=== PATIENT | female | born 1945 | race Caucasian/White ===

== ENCOUNTER 2023-08-29 10:00 | Outpatient (RCR) | payer MEDICARE, BC, SELFPAY ==
--- NOTE | 2023-08-08 14:21 | PT.OPEX ---
PT [place] [facility] Eval PT [facility] Outpatient Eval Start: 07/24/23 16:30 Freq: Status: Active Protocol: Document 08/08/23 11:50 MLS (Rec: 08/08/23 14:17 MLS [id number]) E-signed By An Jensen DPT Physical Therapy Outpatient Evaluation Insurance Information Recert Due Date 11/05/23 Insurance Name Medicare B,Blue Cross/Blue [employer] Medical Diagnosis R29.898 bilateral leg weakness M47.816 lumbar spondylosis Treating Diagnosis M54.50 Low back pain R29.898 bilateral leg weakness Referring MD Marc Neri MD Subjective Subjective Patient is a 78 year old female who presents to physical therapy with signs and symptoms consistent with low back and leg pain. she reports that she fell 4 times last winter. She states that she broke 2 hip bones and both shoulders. She states that she has been having low back pain since then on and off. She ambulates with a 4 prong cane. She states that she doesn't sleep well but she does take sleeping pills. She states that she takes the pills as needed. She states that she is doing a few exercises for her arms and legs at home. Aggravating factors include lifting. Alleviating factors include nothing. She states that she does have pain across her low back, worse on the right side. She reports pain in both feet and lower extremities. The pain is in her feet and up to mid calf. No complaints of numbness or tingling. Significant past medical history includes arthritis, respiratory problems, previous broken hips and shoulder from fall. She reports that her last fall was in Aug/Sep. Patient would like to have less pain in her back and legs from physical therapy sessions. 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[place] [employer] Objective Other/Pertinent Objective Posture Assessment: Ambulates with 4 prong cane Decreased lordosis LUMBAR ROM Flexion: 75% Extension: 75% Right Sidebend: 75% Left Sidebend: 75% Right Rotation: 75% Left Rotation: 75% LE MMT Hip flexion: R 3/5 L 3/5 Hip Extension: R 3/5 L 3/5 Hip abduction: R 3/5 L 3/5 Knee extension: R 3/5 L 3/5 Knee Flexion: R 3/5 L 3/5 JOINT MOBILITY/PALPATION Severe tenderness and tightness with palpation of bilateral QL and ES in prone position SPECIAL TESTS -Quadrant test: negative -Single leg stance: unable to perform due to balance -Slump test: negative -Straight leg raise: negative SI/HIP -NATALIE: negative -FADIR: negative TX: Access Code: [email or web address] URL: [email or web address] Date: 08/08/2023 Prepared by: An Jensen Exercises - Supine Bridge - 1 x daily - 7 x weekly - 3 sets - 10 reps - Active Straight Leg Raise with Quad Set - 1 x daily - 7 x weekly - 3 sets - 10 reps - Supine Heel Slide - 1 x daily - 7 x weekly - 3 sets - 10 reps - Supine Gluteal Sets - 1 x daily - 7 x weekly - 3 sets - 10 reps - Supine Quadricep Sets - 1 x daily - 7 x weekly - 3 sets - 10 reps Functional Test Performed & Score 36/50 Modified Oswestry Low Back Pain Questionnaire 56/80 LEFS Assessment Assessment/Impression Pt is a 78 year old female who presents with concerns of lumbar spondylosis and bilateral lower extremity weakness. Patient also has notable objective findings including limited ROM, tenderness to palpation, and decreased strength which are also likely contributing to the problem. Patient is a good candidate for skilled therapy to target deficits described above. Skilled PT intervention is necessary for use of therapeutic exercise manual therapy, neuromuscular re- education, gait training, and therapeutic activity. Functional impairments include difficulty with standing, walking, sleeping, exercising and ADLs. See appropriate sections of PT eval for complete list of goals and POC . D/C plan and criteria is for pt to achieve the goals as listed below or until max rehab potential is met. Pt was agreeable with plan of care and goals established. Primary Functional Limitations standing walking exercising ADLs sleeping Plan of Care Rehabilitation Potential Good Physical Therapy Goals ST.Pt will demonstrate independence in performance of home exercise program with the use of video and/or handouts in order to optimize functional mobility and reduce risk for re-injury. 2.Pt will demonstrate consistent HEP compliance to ensure progress in reaching established goals during course of care. 3.Patient will be able to sit for up to one hour without pain. 4.Patient will report pain levels <2/10 with all activities in order to improve functional mobility at home, work and during functional leisure activities. LT.Patient is able to sleep without waking more than one time due to pain in a 6-8 hour time frame. 6.Patient will be able to walk up to one mile without pain. 7.Patient will be able to bend and lift household items from the floor to shoulder height to perform ADLs without pain. 8.Pt will be able to ascend/ descend 1 flight of stairs in order to perform ADLs pain free. 9.Pt will exhibit 5 pt improvement in Modified Oswestry and LEFS Outcome measures to demonstrate functional improvement and progress towards goals Coordination/Communication With Referral Source Treatment Plan/Direct Interventions Gait Training,Manual Therapy, Neuromuscular Re-ed, Therapeutic Activities, Therapeutic Exercises Patient Will Be Discharged From Therapy Independently Progressing Evaluation Billing Untimed Code Treatment Minutes 30 Complexity Low Certification Information Physician Comment/Change : Physician NPI Number #
== END 2023-11-21 09:17 | disposition home or self-care (01) ==
PROVIDERS: PCP Surgery; Visit Provider Family Medicine
DX: M47.816 Spondylosis without myelopathy or radiculopathy, lumbar region (principal); R29.898 Other symptoms and signs involving the musculoskeletal system; M54.50 Low back pain, unspecified; Z51.89 Encounter for other specified aftercare
CPT/HCPCS: 97110; 97140; 97161

== ENCOUNTER 2025-04-30 10:15 | Outpatient (CLI) | payer MEDICARE, BC, SELFPAY | END 2025-04-30 10:16 | disposition home or self-care (01) | PROVIDERS: PCP Internal Medicine; Visit Provider Internal Medicine | DX: E11.9 Type 2 diabetes mellitus without complications (principal) | CPT/HCPCS: 80053; 80061 ==

== ENCOUNTER 2025-08-06 09:19 | Observation (INO) | payer MEDICARE, BC, SELFPAY ==
[2025-08-06] VITALS (28 sets, daily range): BP systolic 136–151; BP diastolic 51–68; PULSE 61–78; RESP 12–18; TEMP 36.2–36.7; O2SAT 87–100; BMI 34.3
--- NOTE | 2025-08-06 10:09 | ED.GENADULT ---
HPI - General Adult General Chief complaint: Back Injury/Pain Stated complaint: Back pain Time Seen by Provider: 08/06/25 10:09 History of Present Illness HPI narrative: Patient here with increased back pain starting this morning at 3:30 am when going to the bathroom . She was here previously on last week with negative XRays. Was doing fairly well up until this morning. Taking Tylenol at home for the pain. Given 100 mcg fent in the ambulance. 80-year-old woman presenting to the emergency department with complaint of severe back pain. Lives with son. Has been attending to her and this morning when went to mobilize, use the bathroom, marked increase in pain. Arrive via EMS. Has received some fentanyl. Looks like had a fall on 07/22 described as a mechanical fall. And then with increasing left hip pain was seen in clinic on 07/31. Imaging at that time was negative for acute abnormality with imaging focused on the right hip. Underlying history of rheumatoid arthritis and osteoporosis and diabetes. Was given a small quantity of [place] and have been restricting [place] to 1 tablet before bed as they do not have much supply. Apparently history of some degree of IBS propensity to diarrhea. Granddaughter here is an PROGRAMMING EQUIPMENT OPERATOR and manages/organized her medications. They have recently weaned off of tramadol. History of dementia and COPD Son has some of his own physical difficulties and is having trouble managing Anju in her current state. Anju has moved from cane to walker and is now worse. Related Data Home Medications ?Medication ?Instructions ?Recorded ?Confirmed Prevagen PO 04/30/25 07/31/25 amlodipine 5 mg tablet 5 mg PO QDAY 04/30/25 07/31/25 citalopram 20 mg tablet 20 mg PO QDAY 04/30/25 07/31/25 donepezil 10 mg tablet 10 mg PO QDAY 04/30/25 07/31/25 ferrous sulfate 325 mg (65 mg 325 mg PO QDAY 04/30/25 07/31/25 iron) tablet glipizide 2.5 mg tablet, extended 2.5 mg PO QDAY 04/30/25 07/31/25 release 24 hr hydroxyzine HCl 25 mg tablet 25 mg PO QHS 04/30/25 07/31/25 levothyroxine 137 mcg capsule 137 mcg PO QDAY 04/30/25 07/31/25 [id number] 250 mg-dha 90 mg-epa 160 cap PO BID 04/30/25 07/31/25 mg-fish-lut 10 mg-zeax 2 mg capsule (Ocuvite [employer]) prednisone 5 mg tablet 5 mg PO QDAY 04/30/25 07/31/25 trazodone 50 mg tablet 25 mg PO QHS PRN 04/30/25 07/31/25 Previous Rx's ?Medication ?Instructions ?Recorded acetaminophen 325 mg capsule 650 mg (2 x 325 mg) PO ONCE PRN 07/31/25 pain #30 caps hydrocodone 5 mg-acetaminophen 325 1 tab PO Q8H PRN pain #10 tabs 07/31/25 mg tablet Allergies Allergy/AdvReac Type Severity Reaction Status Date / Time indomethacin AdvReac Unknown Nausea Verified 07/31/25 13:18 Review of Systems Status of ROS: Reports: 6 or more systems reviewed and unremarkable except as noted in History and below [facility] Medical History COPD (chronic obstructive pulmonary disease) ?J44.9 - Chronic obstructive pulmonary disease, unspecified (ICD-10) GERD (gastroesophageal reflux disease) ?K21.9 - Gastro-esophageal reflux disease without esophagitis (ICD-10) Peripheral neuropathy ?G62.9 - Polyneuropathy, unspecified (ICD-10) Migraine ?G43.909 - Migraine, unspecified, not intractable, without status migrainosus (ICD-10) Intermittent diarrhea ?R19.7 - Diarrhea, unspecified (ICD-10) Dementia ?F03.90 - Unspecified dementia, unspecified severity, without behavioral disturbance, psychotic disturbance, mood disturbance, and anxiety (ICD-10) Insomnia ?G47.00 - Insomnia, unspecified (ICD-10) Anxiety ?F41.9 - Anxiety disorder, unspecified (ICD-10) Depression ?F32.A - Depression, unspecified (ICD-10) Osteoporosis ?M81.0 - Age-related osteoporosis without current pathological fracture (ICD-10) Type 2 diabetes mellitus ?E11.9 - Type 2 diabetes mellitus without complications (ICD-10) Hypothyroidism ?E03.9 - Hypothyroidism, unspecified (ICD-10) Hyperlipidemia ?E78.5 - Hyperlipidemia, unspecified (ICD-10) Hypertension ?I10 - Essential (primary) hypertension (ICD-10) Rheumatoid arthritis ?M06.9 - Rheumatoid arthritis, unspecified (ICD-10) Social History What is your current living situation?: I presently have a place to live Problems where you live: no known problems In the past 12 months, utilities in danger of being shut off: no In past 12 months, lack of transportation kept you from medical appts, meetings, work, or getting things needed for daily living: no In the past 12 mos, have been you worried that your food would run out before you had money to buy more?: never true In the past 12 mos, the food you bought just didn't last and you didn't have money to buy more?: declined to answer How often does anyone, including family, friends and others, physically hurt you: decline to answer How often does anyone, including family, friends and others, insult or talk down to you: decline to answer How often does anyone, including family, friends and others, threaten you with harm: decline to answer How often does anyone, including family, friends and others, scream or curse at you: decline to answer Exam Narrative: Exam Narrative: Still complaining of pain with emesis bag at hand although denying nausea. A little hard of hearing. Examination shows at rest is relatively comfortable but any movement elicits marked increase in pain. Sore to palpation over the left greater trochanter and IT band. Also with pain in the left SI joint greater than right. Pain to palpation through the low back as well. No abdominal pain. She is breathing easily but was placed on nasal cannula 2 L with some lower oxygen saturations; this was after receiving fentanyl. Is able to raise both legs from her bed without significant difficulty although the left leg with noticeably discomfort. Const: Vital Signs, click to edit/add: Vital Signs - 24 hr 08/06/25 09:24 08/06/25 09:25 08/06/25 09:26 Temperature 97.1 F L Pulse Rate 68 69 Pulse Rate [Pulse Oximeter] 71 Respiratory Rate 18 Blood Pressure 144/68 H Blood Pressure [Ri ght Upper Arm] 144/68 H Pulse Oximetry 88 89 88 Oxygen Delivery Me thod Room Air Oxygen Flow Rate 08/06/25 09:30 08/06/25 09:33 08/06/25 09:45 Temperature Pulse Rate 72 64 Pulse Rate [Pulse Oximeter] Respiratory Rate Blood Pressure Blood Pressure [Ri ght Upper Arm] Pulse Oximetry 96 99 Oxygen Delivery Me thod Nasal Cannula Oxygen Flow Rate 2 08/06/25 10:00 08/06/25 10:14 08/06/25 10:15 Temperature Pulse Rate 67 71 66 Pulse Rate [Pulse Oximeter] Respiratory Rate 16 Blood Pressure 151/65 H Blood Pressure [Ri ght Upper Arm] Pulse Oximetry 98 96 94 Oxygen Delivery Me thod Room Air Oxygen Flow Rate 08/06/25 10:30 08/06/25 11:09 08/06/25 11:10 Temperature Pulse Rate 75 63 65 Pulse Rate [Pulse Oximeter] Respiratory Rate 16 12 Blood Pressure 150/60 H Blood Pressure [Ri ght Upper Arm] Pulse Oximetry 92 88 97 Oxygen Delivery Me thod Room Air Nasal Cannula Oxygen Flow Rate 2 08/06/25 11:15 08/06/25 11:30 08/06/25 11:45 Temperature Pulse Rate 62 61 62 Pulse Rate [Pulse Oximeter] Respiratory Rate Blood Pressure Blood Pressure [Ri ght Upper Arm] Pulse Oximetry 99 100 100 Oxygen Delivery Me thod Oxygen Flow Rate 08/06/25 12:00 08/06/25 12:02 08/06/25 12:15 Temperature Pulse Rate 62 61 67 Pulse Rate [Pulse Oximeter] Respiratory Rate 16 Blood Pressure 136/61 Blood Pressure [Ri ght Upper Arm] Pulse Oximetry 100 99 99 Oxygen Delivery Me thod Nasal Cannula Oxygen Flow Rate 2 08/06/25 12:30 08/06/25 12:45 08/06/25 13:00 Temperature Pulse Rate 65 68 64 Pulse Rate [Pulse Oximeter] Respiratory Rate Blood Pressure Blood Pressure [Ri ght Upper Arm] Pulse Oximetry 98 89 88 Oxygen Delivery Me thod Oxygen Flow Rate 08/06/25 13:01 08/06/25 13:30 08/06/25 13:45 Temperature Pulse Rate 67 77 70 Pulse Rate [Pulse Oximeter] Respiratory Rate 16 Blood Pressure 142/58 H Blood Pressure [Ri ght Upper Arm] Pulse Oximetry 88 87 L 88 Oxygen Delivery Me thod Room Air Oxygen Flow Rate Documenting provider has reviewed patient's vital signs: yes Course Vital Signs Vital signs: Initial Vital Signs Pulse Rate 68 08/06/25 09:24 Blood Pressure 144/68 H 08/06/25 09:24 Blood Pressure Mean 93 08/06/25 09:24 Pulse Oximetry 88 08/06/25 09:24 Vital Signs Pulse Rate 68 08/06/25 09:24 Blood Pressure 144/68 H 08/06/25 09:24 Pulse Oximetry 88 08/06/25 09:24 Temperature 97.1 F L 08/06/25 09:26 Pulse Rate 70 08/06/25 13:45 Respiratory Rate 16 08/06/25 13:01 Blood Pressure 142/58 H 08/06/25 13:01 Pulse Oximetry 88 08/06/25 13:45 Oxygen Delivery Method Room Air 08/06/25 13:01 Oxygen Flow Rate 2 08/06/25 12:02 Medications Administered Medications: Discontinued Medications Generic Name Dose Route Start Last Admin Trade Name Freq PRN Reason Stop Dose Admin Hydrocodone Bitart/Acetaminophen 2 tab 08/06/25 13:21 08/06/25 13:29 Hydrocodone-Acetamin 5-325 Mg 1 Tab PO 08/06/25 13:22 2 tab ONCE ONE Administration Morphine Sulfate 4 mg 08/06/25 10:29 08/06/25 10:51 Morphine 4 Mg/Ml Inj IVP 08/06/25 10:30 4 mg ONCE ONE Administration Medical Decision Making MDM Narrative Medical decision making narrative: I did request some morphine ahead of further imaging. With degree of pain complaint I think it would be prudent to CT lumbar spine and pelvis. Might have a compression fracture. Appears to be experiencing some decompensation in the IT band and then throughout the left-sided hip frankly. Has been comfortable at rest during time in the ER. By my independent review CT imaging does show compression fracture at L2. INDICATION: Severe low back pain. TECHNIQUE: CT lumbar spine without contrast. COMPARISON: None. FINDINGS: Age indeterminate compression deformity/fracture of the superior endplate of the L2 vertebral body with mild retropulsion without severe spinal canal stenosis. Multilevel degenerative changes of the lumbar spine including intervertebral disc space height narrowing and facet arthropathy. Mild intervertebral body height loss of the L5 vertebral body. Mild anterolisthesis L4 on L5. Aortic iliac atherosclerotic calcifications. IMPRESSION: Age-indeterminate compression deformity/fracture of the L2 vertebral body. Recommend correlation with point tenderness and consider MRI for definitive evaluation. Please note that all CT scans at this facility use dose modulation, iterative reconstruction, and/or weight-based dosing when appropriate to reduce radiation dose to as low as reasonably achievable. Dictated by Villa Wesley MD @ 08/06/2025 11:37:38 AM EXAM: CT OF THE PELVIS, WITHOUT CONTRAST CLINICAL INDICATION: Left hip pain following fall 3 weeks prior. COMPARISON STUDIES: 07/31/2025 radiographs. TECHNICAL: Non-contrast CT of the pelvis with axial images. Sagittal oblique and coronal oblique reformatted images were created of the left hip. FINDINGS: OSSEOUS STRUCTURES: No fracture, callous formation or periosteal reaction. No worrisome osseous lesion. Benign bone island in the right femoral head. No evidence for chronic avascular necrosis. JOINT SPACES: Right Hip: No effusion. Mild hypertrophic changes. Left Hip: No effusion. Mild hypertrophic changes. SI Joints: Moderate to advanced degenerative changes. No ankylosis. MUSCLES AND TENDONS: No intramuscular mass or hematoma. No muscle atrophy. No retracted tendon tear. SOFT TISSUES: No subcutaneous edema, fluid collection or hematoma. INTRAPELVIC CONTENTS: No free fluid or hematoma. No inguinal hernia. Hysterectomy. IMPRESSION: 1. No acute findings. 2. Mild degenerative changes in the hips. 3. Moderate to advanced degenerative changes in the SI joints. 4. Hysterectomy. Please note that all CT scans at this facility use dose modulation, iterative reconstruction, and/or weight-based dosing when appropriate to reduce radiation dose to as low as reasonably achievable. Dictated by Calvin Alvarez MD @ 08/06/2025 11:12:20 AM I did go to speak with primary care provider Dr. Romero Has made an appointment for this coming Sunday at 9:00 a.m. Discussion also for pain management needs and possible addition of calcitonin nasal spray. Attempted to mobilize and not able to bear weight more than 1 step. Subsequently given 2 tablets of [place]. Upon reassessment still unable mobilize adequately have requested for admission. Also uncertain tolerance of opiates along with history of COPD. Tends toward some mild hypoxia Medical Records Medical records reviewed: Yes I reviewed the patient's medical records Discharge Plan Discharge Clinical Impression: Compression fracture of lumbar vertebra, Pain Patient Disposition: Admitted As Observation Condition: Stable
--- NOTE | 2025-08-06 10:29 | CRLHL7_ITS ---
For Patients: As a result of the Century Cures Act, medical imaging exams and procedure reports are released immediately into your electronic medical record. You may view this report before your referring provider. If you have questions, please contact your health care provider. EXAM: CT OF THE PELVIS, WITHOUT CONTRAST CLINICAL INDICATION: Left hip pain following fall 3 weeks prior. COMPARISON STUDIES: 07/31/2025 radiographs. TECHNICAL: Non-contrast CT of the pelvis with axial images. Sagittal oblique and coronal oblique reformatted images were created of the left hip. FINDINGS: OSSEOUS STRUCTURES: No fracture, callous formation or periosteal reaction. No worrisome osseous lesion. Benign bone island in the right femoral head. No evidence for chronic avascular necrosis. JOINT SPACES: Right Hip: No effusion. Mild hypertrophic changes. Left Hip: No effusion. Mild hypertrophic changes. SI Joints: Moderate to advanced degenerative changes. No ankylosis. MUSCLES AND TENDONS: No intramuscular mass or hematoma. No muscle atrophy. No retracted tendon tear. SOFT TISSUES: No subcutaneous edema, fluid collection or hematoma. INTRAPELVIC CONTENTS: No free fluid or hematoma. No inguinal hernia. Hysterectomy. IMPRESSION: 1. No acute findings. 2. Mild degenerative changes in the hips. 3. Moderate to advanced degenerative changes in the SI joints. 4. Hysterectomy. Please note that all CT scans at this facility use dose modulation, iterative reconstruction, and/or weight-based dosing when appropriate to reduce radiation dose to as low as reasonably achievable. Dictated by Calvin Alvarez MD @ 08/06/2025 11:12:20 AM (Electronically Signed)
--- NOTE | 2025-08-06 10:29 | CRLHL7_ITS ---
For Patients: As a result of the Century Cures Act, medical imaging exams and procedure reports are released immediately into your electronic medical record. You may view this report before your referring provider. If you have questions, please contact your health care provider. INDICATION: Severe low back pain. TECHNIQUE: CT lumbar spine without contrast. COMPARISON: None. FINDINGS: Age indeterminate compression deformity/fracture of the superior endplate of the L2 vertebral body with mild retropulsion without severe spinal canal stenosis. Multilevel degenerative changes of the lumbar spine including intervertebral disc space height narrowing and facet arthropathy. Mild intervertebral body height loss of the L5 vertebral body. Mild anterolisthesis L4 on L5. Aortic iliac atherosclerotic calcifications. IMPRESSION: Age-indeterminate compression deformity/fracture of the L2 vertebral body. Recommend correlation with point tenderness and consider MRI for definitive evaluation. Please note that all CT scans at this facility use dose modulation, iterative reconstruction, and/or weight-based dosing when appropriate to reduce radiation dose to as low as reasonably achievable. Dictated by Villa Wesley MD @ 08/06/2025 11:37:38 AM (Electronically Signed)
[2025-08-06] MEDS: MORPHINE 4 MG/ML INJ IVP (10:51)
[2025-08-06] MEDS: HYDROCODONE-ACETAMIN 5-325 MG 1 TAB 2 TAB PO (13:29)
--- NOTE | 2025-08-06 16:32 | PM.IMHP1 ---
Assessment and Plan Assessment and plan (1) Compression fracture of lumbar vertebra: Problem comment: -L2 - age indeterminate. MR could be done to better visualize. This injury fits her history. -scheduled ER acetaminophen. Scheduled Calcitonin. P.r.n. Oxy, limited -inpatient OT and PT evaluations -would be helpful to have more help and DME at her home. -tcu TBD Status: Acute (2) Dementia: Problem comment: -unsure if there has been a baseline [place]. I would suggest this. also seems to get confused about medications and history. At a minimum a family discussion about safety and future arrangements should be initiated. Status: Chronic (3) COPD (chronic obstructive pulmonary disease): Problem comment: Chronic hypoxic respiratory failure. Nothing in exacerbation apparently tonight. Consider outpatient pulmonary evaluation. O2 sat goals 88-92% Current everyday smoker. Status: Chronic (4) Rheumatoid arthritis: Problem comment: Seronegative RA. See scanned [facility] note. Status: Chronic (5) On prednisone therapy: Problem comment: for RA Status: Acute (6) Type 2 diabetes mellitus: Problem comment: single agent glyburide. recent A1c is 6.4. Status: Chronic Hospitalist- H&P: HPI History of Present Illness Date Seen: 08/06/25 Chief complaint: Back pain Narrative: ADMISSION HISTORY AND PHYSICAL - HOSPITALIST Chief Complaint: Back pain, could not ambulate HPI: 80-year-old white female with history of dementia, osteoporosis, RA dendent on prednisone, diabetic who presents with her Steve to our ER. Steve had to call EMS early this morning as he could not help her to the bathroom. Apparently she fell on the 22 of July sustaining a back injury. She was not seen or evaluated at that time. She did come to urgent care about 07/31 for a hip xray(neg for acute fracture). She did say she was taking quite a bit of Tylenol at that time. She has since been using a walker the last couple of weeks. She seemed to be slowly improving. And this morning she just had a lot of trouble helping Steve help her stand up. No new falls. Previous to the fall she used a cane but rarely a walker. ER COURSE: Series of CT scans of her lumbar and pelvis. Analgesics. CODE STATUS: FULL CODE PCP: Dr. Romero EMERGENCY CONTACT PLAN: Steve I've updated the PFSH, medications and allergies in the Expanse tabs. INVESTIGATIONS: LABS/MICRO/ECG/IMAGING Blood pressure stable - 140s 50s Pulse rate 60s. Respiratory rate 16. Pulse ox 88-90% on half a L. No labs Pelvic CT is unremarkable. Known moderate to advanced degenerative changes in the SI joints Lumbar CT Age-indeterminate compression deformity/fracture of the L2 vertebral body. Recommend correlation with point tenderness and consider MRI for definitive evaluation. REVIEW OF SYSTEMS: 12-point ROS completed with patient and negative unless otherwise stated in HPI or below. PHYSICAL EXAM: CONSTITUTIONAL: seems to be alert and participates in her exam. GENERAL: Well nourished. No respiratory distress. Speaks in full sentences. VITAL SIGNS: see record. HEENT: Sclerae are anicteric. No petechiae. CARDIAC: rhythm is regular. There is no S3 or rub. No harsh murmurs. Extremities show trace edema with symmetrical pulses. Back: tender along the lumbar spine, can straight leg raise minimally. NEURO: Speech is fluent. A brief neurologic exam is negative. SKIN: No rashes, petechiae, concerning changes PSYCHIATRIC: Euthymic. ADMIT TO MEDSURG: FLOOR CARE DVT: Lovenox GI: PO intake Time spent: Today I spent 75 minutes seeing the patient, discussing the patient with ER staff, reviewing Expanse and EPIC notes/diagnostics, discussing the care plan with our care time that includes social work, PT/OT, pharmacy, RT, penitentiary and documenting my impressions and plan in the medical record. Medical Decision Making Medical Decision Making Has patient completed a Health Care Directive: No PFSH [facility] Medical History (Updated 08/06/25 @ 17:57 by Tawana Yip MD) Hip pain ?M25.559 - Pain in unspecified hip (ICD-10) Pain ?R52 - Pain, unspecified (ICD-10) COPD (chronic obstructive pulmonary disease) ?J44.9 - Chronic obstructive pulmonary disease, unspecified (ICD-10) GERD (gastroesophageal reflux disease) ?K21.9 - Gastro-esophageal reflux disease without esophagitis (ICD-10) Peripheral neuropathy ?G62.9 - Polyneuropathy, unspecified (ICD-10) Migraine ?G43.909 - Migraine, unspecified, not intractable, without status migrainosus (ICD-10) Intermittent diarrhea ?R19.7 - Diarrhea, unspecified (ICD-10) Dementia ?F03.90 - Unspecified dementia, unspecified severity, without behavioral disturbance, psychotic disturbance, mood disturbance, and anxiety (ICD-10) Insomnia ?G47.00 - Insomnia, unspecified (ICD-10) Anxiety ?F41.9 - Anxiety disorder, unspecified (ICD-10) Depression ?F32.A - Depression, unspecified (ICD-10) Osteoporosis ?M81.0 - Age-related osteoporosis without current pathological fracture (ICD-10) Type 2 diabetes mellitus ?E11.9 - Type 2 diabetes mellitus without complications (ICD-10) Hypothyroidism ?E03.9 - Hypothyroidism, unspecified (ICD-10) Hyperlipidemia ?E78.5 - Hyperlipidemia, unspecified (ICD-10) Hypertension ?I10 - Essential (primary) hypertension (ICD-10) Rheumatoid arthritis ?M06.9 - Rheumatoid arthritis, unspecified (ICD-10) Social History What is your current living situation?: I presently have a place to live Problems where you live: no known problems In the past 12 months, utilities in danger of being shut off: no In past 12 months, lack of transportation kept you from medical appts, meetings, work, or getting things needed for daily living: no In the past 12 mos, have been you worried that your food would run out before you had money to buy more?: never true In the past 12 mos, the food you bought just didn't last and you didn't have money to buy more?: declined to answer How often does anyone, including family, friends and others, physically hurt you: decline to answer How often does anyone, including family, friends and others, insult or talk down to you: decline to answer How often does anyone, including family, friends and others, threaten you with harm: decline to answer How often does anyone, including family, friends and others, scream or curse at you: decline to answer Meds Home Medications and Allergies Home Medications ?Medication ?Instructions ?Recorded ?Confirmed ?Type Prevagen PO 04/30/25 07/31/25 History amlodipine 5 mg tablet 5 mg PO DAILY 04/30/25 08/06/25 History citalopram 20 mg tablet 20 mg PO DAILY 04/30/25 08/06/25 History donepezil 10 mg tablet 10 mg PO HS 04/30/25 08/06/25 History ferrous sulfate 325 mg (65 mg 325 mg PO DAILY 04/30/25 08/06/25 History iron) tablet glipizide 2.5 mg tablet, extended 2.5 mg PO DAILY 04/30/25 08/06/25 History release 24 hr hydroxyzine HCl 25 mg tablet 25 mg PO HS 04/30/25 08/06/25 History prednisone 5 mg tablet 5 mg PO DAILY 04/30/25 08/06/25 History hydrocodone 5 mg-acetaminophen 325 1 tab PO Q8H PRN pain #10 tabs 07/31/25 08/06/25 Rx mg tablet acetaminophen 500 mg tablet 1,000 mg PO Q4H PRN 08/06/25 08/06/25 History ascorbic acid (vitamin C) 500 mg 500 mg PO DAILY 08/06/25 08/06/25 History tablet atorvastatin 10 mg tablet 10 mg PO HS 08/06/25 08/06/25 History calcium carbonate (Calcium 600) 600 mg PO BID 08/06/25 08/06/25 History cholecalciferol (vitamin D3) 50 50 mcg PO DAILY 08/06/25 08/06/25 History mcg (2,000 unit) capsule levothyroxine 137 mcg tablet 137 mcg PO QAM 08/06/25 08/06/25 History vitamins A,C,Q-jard-rqgque 2,148 1 tab PO BID 08/06/25 08/06/25 History mcg-113 mg-45 mg-17.4 mg tablet (Eye Multivitamin) Allergies Allergy/AdvReac Type Severity Reaction Status Date / Time indomethacin AdvReac Unknown Nausea Verified 07/31/25 13:18 Exam Const: Vital Signs, click to edit/add: Vital Signs - 24 hr 08/06/25 09:24 08/06/25 09:25 08/06/25 09:26 Temperature 97.1 F L Pulse Rate 68 69 Pulse Rate [Pulse Oximeter] 71 Respiratory Rate 18 Blood Pressure 144/68 H Blood Pressure [Ri ght Upper Arm] 144/68 H Pulse Oximetry 88 89 88 Oxygen Delivery Me thod Room Air Oxygen Flow Rate 08/06/25 09:30 08/06/25 09:33 08/06/25 09:45 Temperature Pulse Rate 72 64 Pulse Rate [Pulse Oximeter] Respiratory Rate Blood Pressure Blood Pressure [Ri ght Upper Arm] Pulse Oximetry 96 99 Oxygen Delivery Me thod Nasal Cannula Oxygen Flow Rate 2 08/06/25 10:00 08/06/25 10:14 08/06/25 10:15 Temperature Pulse Rate 67 71 66 Pulse Rate [Pulse Oximeter] Respiratory Rate 16 Blood Pressure 151/65 H Blood Pressure [Ri ght Upper Arm] Pulse Oximetry 98 96 94 Oxygen Delivery Me thod Room Air Oxygen Flow Rate 08/06/25 10:30 08/06/25 11:09 08/06/25 11:10 Temperature Pulse Rate 75 63 65 Pulse Rate [Pulse Oximeter] Respiratory Rate 16 12 Blood Pressure 150/60 H Blood Pressure [Ri ght Upper Arm] Pulse Oximetry 92 88 97 Oxygen Delivery Me thod Room Air Nasal Cannula Oxygen Flow Rate 2 08/06/25 11:15 08/06/25 11:30 08/06/25 11:45 Temperature Pulse Rate 62 61 62 Pulse Rate [Pulse Oximeter] Respiratory Rate Blood Pressure Blood Pressure [Ri ght Upper Arm] Pulse Oximetry 99 100 100 Oxygen Delivery Me thod Oxygen Flow Rate 08/06/25 12:00 08/06/25 12:02 08/06/25 12:15 Temperature Pulse Rate 62 61 67 Pulse Rate [Pulse Oximeter] Respiratory Rate 16 Blood Pressure 136/61 Blood Pressure [Ri ght Upper Arm] Pulse Oximetry 100 99 99 Oxygen Delivery Me thod Nasal Cannula Oxygen Flow Rate 2 08/06/25 12:30 08/06/25 12:45 08/06/25 13:00 Temperature Pulse Rate 65 68 64 Pulse Rate [Pulse Oximeter] Respiratory Rate Blood Pressure Blood Pressure [Ri ght Upper Arm] Pulse Oximetry 98 89 88 Oxygen Delivery Me thod Oxygen Flow Rate 08/06/25 13:01 08/06/25 13:30 08/06/25 13:45 Temperature Pulse Rate 67 77 70 Pulse Rate [Pulse Oximeter] Respiratory Rate 16 Blood Pressure 142/58 H Blood Pressure [Ri ght Upper Arm] Pulse Oximetry 88 87 L 88 Oxygen Delivery Me thod Room Air Oxygen Flow Rate
[2025-08-06] MEDS: CALCITONIN SALMON NASAL SPRAY 200 UNIT 1 SPRAY NOSTRIL-B (18:38)
[2025-08-06] MEDS: ACETAMINOPHEN 650 MG TABLET ER 1300 MG PO (18:38)
[2025-08-06] MEDS: CALCIUM CARBONATE 500 MG TABLET PO (21:18)
[2025-08-06] MEDS: MELATONIN 3 MG TABLET 6 MG PO (21:19)
[2025-08-06] MEDS: ATORVASTATIN CALCIUM 10 MG TABLET PO (21:20)
[2025-08-06] MEDS: DONEPEZIL 10 MG TABLET PO (21:20)
[2025-08-06] MEDS: ENOXAPARIN 40 MG/0.4 ML INJ SUBCUT (21:22)
[2025-08-06] MEDS: SODIUM CHLORIDE 0.9 % (FLUSH) 10 ML SYRINGE 5 ML IVF (21:22)
[2025-08-06] MEDS: ONDANSETRON ODT 4 MG TAB PO (23:52)
[2025-08-07] MEDS: ACETAMINOPHEN 650 MG TABLET ER 1300 MG PO (00:42)
[2025-08-07 01:30] VITALS: O2SAT 85
[2025-08-07 01:40] VITALS: O2SAT 90
[2025-08-07 03:10] VITALS: O2SAT 94
[2025-08-07 03:14] VITALS: BP 116/65; PULSE 69; RESP 18; O2SAT 88
[2025-08-07 06:12] LABS: Hematocrit* 36.9 % (33.0-51.0); Hemoglobin* 12.4 gm/dL (12.0-16.0); Immature Granulocytes Abs Auto 0.06 K/uL (0.00-0.30); Immature Granulocytes Pct Auto 0.6 %; Lymphocytes Absolute Auto 4.21 K/uL (0.90-2.90); Mean Corpuscular HGB Conc 34 gm/dL (32-36); Mean Corpuscular Hemoglobin 32 pg (26-34); Mean Corpuscular Volume 94 fL (80-100); RDW Coefficient of Variation % 12.8 % (11.5-15.5); Red Blood Count* 3.92 m/uL (4.00-5.20); White Blood Count* 9.87 K/uL (4.50-11.00)
[2025-08-07 06:13] LABS: Slide Review Reflex No
[2025-08-07 06:23] LABS: Chloride* 98 mmol/L (96-114); Sodium* 131 mmol/L (135-149)
[2025-08-07 06:24] LABS: Potassium* 4.2 mmol/L (3.6-5.1)
[2025-08-07 06:27] LABS: Anion Gap 3 mEq/L (7-15); Blood Urea Nitrogen* 18 mg/dL (7-30); Calcium* 9.3 mg/dL (8.4-10.6); Carbon Dioxide* 30 mmol/L (20-32); Creatinine* 0.8 mg/dL (0.5-1.5); Est. Creatinine Clearance* 40.04; Estimated Glomerular Filt Rate 75 ml/min; Glucose* 91 mg/dL (60-115)
[2025-08-07] MEDS: LEVOTHYROXINE 112 MCG TABLET PO (06:30)
[2025-08-07 07:00] VITALS: BP 135/55; PULSE 63; PULSE 73; RESP 18; TEMP 36.4; O2SAT 93
--- NOTE | 2025-08-07 07:06 | PC.NURSE ---
Addendum entered by Connie Grayson RN 08/07/25 07:40: Patient needed O2 at 0.5LPM via NC at times during night to keep sats above 88%. Original Note: Shift note ([id number]): Patient pleasant, alert and oriented. Repositioned during the night. Given scheduled Tylenol for pain rated 3/10. Remained in bed this shift. Pure wick applied.?
[2025-08-07] MEDS: AMLODIPINE 5 MG TABLET PO (08:30)
[2025-08-07] MEDS: CITALOPRAM HYDROBROMIDE 20 MG TABLET PO (08:30)
[2025-08-07] MEDS: glipiZIDE 2.5 MG ER TAB PO (08:30)
[2025-08-07] MEDS: FERROUS SULFATE 325 MG TABLET PO (08:31)
[2025-08-07] MEDS: LEVOTHYROXINE 25 MCG TABLET PO (10:10)
--- NOTE | 2025-08-07 10:28 | PC.SOCIAL ---
Addendum entered by BHAVIK Garcia 08/07/25 16:21: Discharge planning: Pt's daughter asked about supplemental PT that might come to her parent's house to assist with additional PT session for the pt outside of what Medicare will cover for home care services with [facility], [facility]. lime kiln worker helper encouraged pt's daughter to check with [facility], as they have been known to do home visit PT session for private pay. Pt's daughter was thankful for the information. In addition, OT through [facility]. is delayed a few weeks in starting services, but all other services with [facility]. are able to start right away. Social work to follow-up as needed. Addendum entered by BHAVIK Garcia 08/07/25 13:12: Discharge planning: lime kiln worker helper confirmed with Felicita at [facility]. that she can accept the pt for home care services and they will call the pt's this afternoon to set-up the intake appointment for 08/10. lime kiln worker helper provided all the needed documentation to Felicita at [facility]. and also informed the family that [facility] will be reaching out to them to schedule the intake appointment. The pt and her family are pleased with this plan. Social work to follow-up as needed. Addendum entered by BHAVIK Garcia 08/07/25 12:23: Discharge planning: This social sciences professor found out that [facility] is currently full and does not have any openings. The pt and her have decided to return home with more assistance from family and home care therapies and bath aide assistance. lime kiln worker helper sent the referral to [facility]. out of [place] to assess for acceptance. lime kiln worker helper had talked to Felicita from [facility]. earlier today and she stated they had availability in the [facility] for home care. Social work to follow-up as needed. Original Note: Discharge planning: lime kiln worker helper met with the pt, her and her son this morning in the pt's room. Pt is being recommended for short-term rehab at a nursing home facility. Pt is in Observation status and has straight Medicare for her Medicare Part A insurance which requires a three night inpatient hospital stay to cover short-term rehab at a nursing home facility. Pt will not meet the criteria for Medicare coverage at a nursing home facility at this time. lime kiln worker helper explained to the pt and her family that they would need to private pay for the nursing home facility and most facilities require around $10,000.00 down and cost around $650.00 a day. Pt and her family said they don't have that kind of money and are upset that the pt does not meet the criteria for Medicare coverage for short-term rehab. Pt's stated that he would most likely end up taking her home. lime kiln worker helper did talk to them about hiring a private home management supervisor caregiver and provided them with the list of [facility]. lime kiln worker helper also gave them information on [facility] on the [facility] and has sent a message to the nurse at [facility], Damaris, asking about their availability for openings right now. lime kiln worker helper also provided them with the list of [facility] to look over. lime kiln worker helper asked the pt and her family if they have friends and/or family that can help the with caregiving for the pt at home and the said that everyone works and will not want to come over and help on their day off. lime kiln worker helper plans to check back in with the pt and her family around 11am when the pt's daughter arrives to the hospital to see if they have made any decisions on discharge planning. Social work to follow-up as needed.
[2025-08-07 11:00] VITALS: BP 139/59; PULSE 72; RESP 18; TEMP 36.7; O2SAT 91
[2025-08-07] MEDS: CALCIUM CARBONATE 500 MG TABLET PO (11:46)
--- NOTE | 2025-08-07 12:14 | PM.DS1 ---
DS: Providers Provider Time Seen by Provider: 09:45 Date Seen: 08/07/25 Date of admission: 08/06/25 15:39 Primary care physician: Vincent Romero MD Admitting Clinician: Tawana Yip MD Consults: 08/06/25 15:52 Consult to Occupational Therapy [CONS] Routine Comment: Reason(s) for OT Consult:: Evaluate and Treat Any Restrictions?:: No Restrictions Consult to Physical Therapy [CONS] Routine Comment: Reason(s) for PT Consult:: Evaluate and Treat Any Restrictions?:: No Restrictions Consult to Acid Polymerization Operator [CONS] Routine Comment: Reason for Consult:: Social Service Consult 08/06/25 15:54 Consult to Respiratory Therapy [CONS] Routine Comment: Reason(s) for RT Consult:: Consult Attending Physician on discharge: Joyce Waters MD Date of Discharge: 08/07/25 DS: Diagnosis Discharge Diagnosis (1) Compression fracture of lumbar vertebra: Status: Acute Problem details: -L2 - age indeterminate. MR could be done to better visualize. This injury fits her history. -scheduled ER acetaminophen. Scheduled Calcitonin. P.r.n. Oxy, limited - Pain much improved today. Weakness also improving. -OT and PT evaluations complete, TCU initially recommended, but patient and declined due to finances. More family came later to be part of the discussion and will work on helping out at the house. D/c home today with home PT/OT. (2) Dementia: Status: Chronic Problem details: - Family going to step in more at home. (3) COPD (chronic obstructive pulmonary disease): Status: Chronic Problem details: Chronic hypoxic respiratory failure. Nothing in exacerbation apparently tonight. Consider outpatient pulmonary evaluation. O2 sat goals 88-92% Current everyday smoker. - 08/07 doing well off oxygen today, satted 91% on RA after doing stairs with OT. (4) Rheumatoid arthritis: Status: Chronic Problem details: Seronegative RA. See scanned [facility] note. (5) On prednisone therapy: Status: Chronic Problem details: for RA (6) Type 2 diabetes mellitus: Status: Chronic Problem details: single agent glyburide. recent A1c is 6.4. DS: Summary Hospital Course Hospital Course: This is a 80-year-old female with history of dementia, osteoporosis, rheumatoid arthritis dependent on prednisone, and diabetes mellitus who presented through the emergency department for back pain and weakness. She had sustained a back injury on July 22 when she fell, and was not in evaluated at that time. Later on the 31 of July she went to urgent care for hip pain and her hip x-ray was negative for acute fracture. She seemed to be slowly improving but then yesterday morning suddenly felt very weak and her had trouble getting her out of bed. She did not have any other falls in the meantime. She was found to have an L2 fracture which is consistent with her history and pain. She was started on calcitonin nasal spray and given hydrocodone acetaminophen in the emergency department. She has done well since then and not needed any other narcotic for pain. Today she feels improved and even able to do stairs with therapy this morning. PT and OT initially recommended TCU rehab, however the patient and her noted this would be financially difficult for them and so, in discussion with the patient's family, it was noted that they would be able to help out more at home and were willing to have home health PT, OT and bathing assistance at home. She is therefore discharged home today in improved condition with those services. ML diagnoses above for full details. Time Spent with Patient Time attestation: Total time spent providing and/or coordinating discharge services: Today I spent 40 minutes seeing and discharging the patient, discussing with the patient and her , filling out a [id number] for home PT and OT, reviewing [facility] and [facility] notes/diagnostics/labs, discussing the care plan with our care team that includes social work, PT/OT, pharmacy, RT, detention and documenting my impressions and plan in the medical record. Exam Narrative: Exam Narrative: General: No acute distress. Awake, alert, oriented to self place and situation. Comfortably reclined in the bedside chair. No pallor. No jaundice. Oropharynx: Clear. Mucous membranes moist. Cardiovascular: Regular rate and rhythm. No murmurs, gallops, or rubs. Respiratory: Clear to auscultation bilaterally. No wheezes or crackles. Abdomen: Bowel sounds present. Soft, nondistended, nontender. Extremities: No lower extremity edema. Const: Vital Signs, click to edit/add: Vital Signs - 24 hr 08/06/25 12:15 08/06/25 12:30 08/06/25 12:45 Temperature Pulse Rate 67 65 68 Pulse Rate [Pulse Oximeter] Respiratory Rate Blood Pressure Blood Pressure [Le ft Arm] Pulse Oximetry 99 98 89 Oxygen Delivery Me thod Oxygen Flow Rate 08/06/25 13:00 08/06/25 13:01 08/06/25 13:30 Temperature Pulse Rate 64 67 77 Pulse Rate [Pulse Oximeter] Respiratory Rate 16 Blood Pressure 142/58 H Blood Pressure [Le ft Arm] Pulse Oximetry 88 88 87 L Oxygen Delivery Me thod Room Air Oxygen Flow Rate 08/06/25 13:45 08/06/25 15:54 08/06/25 15:54 Temperature Pulse Rate 70 Pulse Rate [Pulse Oximeter] Respiratory Rate Blood Pressure Blood Pressure [Le ft Arm] Pulse Oximetry 88 90 90 Oxygen Delivery Me thod Room Air Oxygen Flow Rate 08/06/25 17:22 08/06/25 17:22 08/06/25 19:31 Temperature 97.9 F 98.1 F Pulse Rate Pulse Rate [Pulse Oximeter] 76 78 Respiratory Rate 16 16 18 Blood Pressure Blood Pressure [Le ft Arm] 149/53 H 140/51 H Pulse Oximetry 90 90 88 Oxygen Delivery Me thod Room Air Room Air Room Air Oxygen Flow Rate 08/06/25 21:30 08/06/25 23:55 08/07/25 01:30 Temperature 97.7 F Pulse Rate 76 Pulse Rate [Pulse Oximeter] 69 Respiratory Rate 16 Blood Pressure Blood Pressure [Le ft Arm] 150/52 H Pulse Oximetry 92 85 L Oxygen Delivery Me thod Room Air Room Air Oxygen Flow Rate 08/07/25 01:40 08/07/25 03:10 08/07/25 03:14 Temperature Pulse Rate Pulse Rate [Pulse Oximeter] 69 Respiratory Rate 18 Blood Pressure Blood Pressure [Le ft Arm] 116/65 Pulse Oximetry 90 94 88 Oxygen Delivery Me thod Nasal Cannula Nasal Cannula Room Air Oxygen Flow Rate 0.5 0.5 08/07/25 07:00 08/07/25 07:00 Temperature 97.5 F L Pulse Rate 63 Pulse Rate [Pulse Oximeter] 73 Respiratory Rate 18 Blood Pressure Blood Pressure [Le ft Arm] 135/55 L Pulse Oximetry 93 Oxygen Delivery Me thod Room Air Oxygen Flow Rate DS: Data Data Completed and Pending Completed studies during hospitalization: 08/06/2025 EKG: Normal sinus rhythm, 71 beats per minute, septal infarct, age undetermined, ST and T wave abnormality, consider lateral ischemia. 08/07/2025 EKG: Normal sinus rhythm, 61 beats per minute, septal infarct, age undetermined, T-wave abnormality, consider lateral ischemia, unchanged from previous EKG. Ordering Physician: Isaias Ashby M.D. Date of Service: 08/06/25 Procedure(s): CT lumbar spine wo con Accession Number(s): [id number] cc: Vincent Romero M.D.; Isaias Ashby M.D.~ For Patients: As a result of the Cures Act, medical imaging exams and procedure reports are released immediately into your electronic medical record. You may view this report before your referring provider. If you have questions, please contact your health care provider. INDICATION: Severe low back pain. TECHNIQUE: CT lumbar spine without contrast. COMPARISON: None. FINDINGS: Age indeterminate compression deformity/fracture of the superior endplate of the L2 vertebral body with mild retropulsion without severe spinal canal stenosis. Multilevel degenerative changes of the lumbar spine including intervertebral disc space height narrowing and facet arthropathy. Mild intervertebral body height loss of the L5 vertebral body. Mild anterolisthesis L4 on L5. Aortic iliac atherosclerotic calcifications. IMPRESSION: Age-indeterminate compression deformity/fracture of the L2 vertebral body. Recommend correlation with point tenderness and consider MRI for definitive evaluation. Please note that all CT scans at this facility use dose modulation, iterative reconstruction, and/or weight-based dosing when appropriate to reduce radiation dose to as low as reasonably achievable. Dictated by Villa Wesley MD @ 08/06/2025 11:37:38 AM (Electronically Signed) Ordering Physician: Isaias Ashby M.D. Date of Service: 08/06/25 Procedure(s): CT pelvis wo con Accession Number(s): [id number] cc: Vincent Romero M.D.; Isaias Ashby M.D.~ For Patients: As a result of the Cures Act, medical imaging exams and procedure reports are released immediately into your electronic medical record. You may view this report before your referring provider. If you have questions, please contact your health care provider. EXAM: CT OF THE PELVIS, WITHOUT CONTRAST CLINICAL INDICATION: Left hip pain following fall 3 weeks prior. COMPARISON STUDIES: 07/31/2025 radiographs. TECHNICAL: Non-contrast CT of the pelvis with axial images. Sagittal oblique and coronal oblique reformatted images were created of the left hip. FINDINGS: OSSEOUS STRUCTURES: No fracture, callous formation or periosteal reaction. No worrisome osseous lesion. Benign bone island in the right femoral head. No evidence for chronic avascular necrosis. JOINT SPACES: Right Hip: No effusion. Mild hypertrophic changes. Left Hip: No effusion. Mild hypertrophic changes. SI Joints: Moderate to advanced degenerative changes. No ankylosis. MUSCLES AND TENDONS: No intramuscular mass or hematoma. No muscle atrophy. No retracted tendon tear. SOFT TISSUES: No subcutaneous edema, fluid collection or hematoma. INTRAPELVIC CONTENTS: No free fluid or hematoma. No inguinal hernia. Hysterectomy. IMPRESSION: 1. No acute findings. 2. Mild degenerative changes in the hips. 3. Moderate to advanced degenerative changes in the SI joints. 4. Hysterectomy. Please note that all CT scans at this facility use dose modulation, iterative reconstruction, and/or weight-based dosing when appropriate to reduce radiation dose to as low as reasonably achievable. Dictated by Calvin Alvarez MD @ 08/06/2025 11:12:20 AM (Electronically Signed) Labs on day of discharge: Labs from last 24 hours 08/07/25 05:32 WBC 9.87 RBC 3.92 L Hgb 12.4 Hct 36.9 MCV 94 MCH 32 MCHC 34 RDW Coeff of Nelson 12.8 Plt Count 360 Neut % (Auto) 48.8 Lymph % (Auto) 42.7 Gregg % (Auto) 4.0 Eos % (Auto) 3.4 Baso % (Auto) 0.5 Neut # (Auto) 4.82 Lymph # (Auto) 4.21 H Gregg # (Auto) 0.40 Eos # (Auto) 0.34 Baso # (Auto) 0.05 Abs Immat Gran (auto) 0.06 Imm/Tot Granulo (auto) 0.6 Sodium 131 L Potassium 4.2 Chloride 98 Carbon Dioxide 30 Anion Gap 3 L BUN 18 Creatinine 0.8 Estimated Creat Clear 40.04 Estimated GFR 75 Glucose 91 Calcium 9.3 Discharge Plan Discharge Disposition: Home, Self-Care Date of Admission: 08/06/25 15:39 Attending Provider on Discharge: Joyce Waters Primary Care Provider: Vincent Romero Condition: Stable Anticipated Discharge Date/Time: 08/07/25 12:40 Discharge Medications: New calcitonin (salmon) 200 unit/actuation [place],Non-Aerosol 1 spray intranasal HS Qty: 3.7 0RF hydrocodone-acetaminophen 5-325 mg tablet 1 tab PO Q8H PRN (Reason: pain) Qty: 10 0RF Rx Instructions: Do NOT take more than 4000 mg acetaminophen (also called Tylenol) in one day. Continued donepezil 10 mg tablet 10 mg PO HS prednisone 5 mg tablet 5 mg PO DAILY amlodipine 5 mg tablet 5 mg PO DAILY citalopram 20 mg tablet 20 mg PO DAILY glipizide 2.5 mg tablet extended release 24hr 2.5 mg PO DAILY ferrous sulfate 325 mg (65 mg iron) tablet 325 mg PO DAILY hydroxyzine HCl 25 mg tablet 25 mg PO HS Prevagen PO Eye Multivitamin 2,148 mcg-113 mg-45 mg-17.4mg tablet 1 tab PO BID atorvastatin 10 mg tablet 10 mg PO HS ascorbic acid (vitamin C) 500 mg tablet 500 mg PO DAILY calcium carbonate [Calcium 600] 600 mg calcium (1,500 mg) tablet 600 mg PO BID cholecalciferol (vitamin D3) 50 mcg (2,000 unit) capsule 50 mcg PO DAILY levothyroxine 137 mcg tablet 137 mcg PO QAM Changed acetaminophen 500 mg tablet 1,000 mg PO Q6H PRNQty: 100 0RF Discontinued hydrocodone-acetaminophen 5-325 mg tablet 1 tab PO Q8H PRN (Reason: pain) Qty: 10 0RF Discharge Orders: Discharge Order (Routine); Ordered 08/07/25 Ordered By: Joyce Waters Additional Instructions: Home health PT and OT, bathing assistance. Activity Level: Up with assist and Use Walker Discharge Diet: Regular Follow Up Appointments: Vincent Romero MD [Primary Care Provider, Internal Medicine] Referral Note: 5-7 days [facility]: [facility] Info Inst[facility]
--- NOTE | 2025-08-07 14:03 | PC.NURSE ---
Discharge Note 245 Patient was very pleasant and cooperative throughout shift. VSS. Afebrile. A&Ox3. SBA with walker. Home healthcare begins 08/10/2025. Patient was discharged at 1355 accompanied by and daughter.
== END 2025-08-07 13:55 | disposition home or self-care (01) ==
LOC: ED 14:53 → MEDSURG 15:39
PROVIDERS: Admitting Provider Family Medicine; Emergency Provider Family Medicine; PCP Internal Medicine; Visit Provider Family Medicine
DX: S32.029A Unspecified fracture of second lumbar vertebra, initial encounter for closed fracture (principal); W19.XXXA Unspecified fall, initial encounter; F03.90 Unspecified dementia, unspecified severity, without behavioral disturbance, psychotic disturbance, mood disturbance, and anxiety; J44.9 Chronic obstructive pulmonary disease, unspecified; J96.11 Chronic respiratory failure with hypoxia; F17.210 Nicotine dependence, cigarettes, uncomplicated; M06.9 Rheumatoid arthritis, unspecified; Z79.52 Long term (current) use of systemic steroids; E11.8 Type 2 diabetes mellitus with unspecified complications; Z79.4 Long term (current) use of insulin
CPT/HCPCS: 36415; 72131; 72192; 80048; 82962; 85025; 93005; 94761; 96374; 97116; 97161; 97165; 97530; 97535; 99284; 99285; A9270; G0378; J1650; J2270; J7512